=== PATIENT | male | born 1990 | race African-American/Black ===

== ENCOUNTER 2016-05-08 03:00 | Emergency (ER) | payer BC ==
[2016-05-08] MEDS ORDERED: BENZONATATE 100 MG PERLES PO ONE (03:22)
[2016-05-08] MEDS ORDERED: METHYLPREDNISOLONE 125 MG/2 ML VIAL IM ONE (03:22)
[2016-05-08 03:23] VITALS: TEMP 98.1; BMI 41.8
--- NOTE | 2016-05-08 03:25 | EDPRACDOC ---
- General Information Chief Complaint: Sore Throat Stated Complaint: SORE THROAT, COUGH Time Seen by Provider: 05/08/16 03:20 Information Source: Patient Mode Of Arrival: Ambulance Home Medications: Home Medications Albuterol Sulfate [Proair Hfa] 2 puff INH QID #1 inhaler 05/08/16 Azithromycin [Zithromax] 250 mg PO DAILY #6 tablet 05/08/16 Benzonatate [Tessalon] 200 mg PO TID #20 per 05/08/16 Prednisone [Deltasone, Orasone] 20 mg PO BID #20 tab 05/08/16 Promethazine with Codeine [PHENERGAN with CODEINE] 5 ml PO Q4 #120 udc 05/08/16 Allergies/Adverse Reactions: Allergies Allergy/AdvReac Type Severity Reaction Status Date / Time No Known Allergies Allergy Verified 05/08/16 03:22 - History of Present Illness Symptoms Started: 3 months HPI: PT PRESENTS FOR PERSISTENT COUGH THAT HAS LAST FOR SEVERAL MONTHS. HE WAS TREATED LAST YEAR FOR BRONCHITIS WHICH STARTED AFTER BEGAN VAPING, HE STATES HE HAS SINCE STOPPED. STATES THAT NOW HE HAS COUGHED TO THE POINT OF GETTING A SORE THROAT AND IS NOW HAVE STREAKS OF BLOOD IN HIS SPUTUM. DENIES FEVER, CHILLS , NAUSEA OR VOMITING. Symptoms: Reports: Cough, Sore Throat Recently Treated Infections:: Denies: Otitis media, Pneumonia, URI Recent Medications: Reports: None Relevant History Of: Reports: None Shortness of Breath: None Cough Frequency: Intermittent Cough Description: Reports: Productive Rhinorrhea: Reports: Clear Ear Symptoms: Reports: None Associated Signs and Symptoms: Denies: Cough, Earache, Fever, Headache, Nasal Symptoms, Sore Throat, Nausea, Vomiting, Diarrhea, Myalgia, Rash, Pain with head movement, AMS, Other ED Past Medical History - History Reviewed Yes Nurses notes reviewed and agree except as marked - Patient Medical History Respiratory History: Reports: Asthma Psychological History: Denies: Depression Systemic History: Denies: Cancer - Social Medical History Smoking Status: Heavy tobacco smoker (5 or more cigarettes/day or daily pipe/ cigar) EDM Review of Systems - Review of Systems ROS Negative Except as Marked: Yes All systems reviewed and were negative except as marked - Physical Exam Constitutional: Alert Oriented to: Time, Person, Place Last recorded Vital Signs: Last Vital Signs Temp 98.1 F 05/08/16 03:19 Pulse 86 05/08/16 03:19 Resp 20 05/08/16 03:19 BP 156/67 05/08/16 03:19 Pulse Ox 98 05/08/16 03:19 Oxygen Pulse Oxygen Saturation 98 O2 Device Room Air Oxygen Flow Rate Fraction of Inspired Oxygen ( FIO2) - HEENT Head: Normal ( normocephalic) Eye Exam: Normal (PERRL, EOMI, Sclera white) Oropharynx: Red, Tonsillar Hypertrophy Tympanic Membrane: Normal Nose: No Symptoms Reported (septum midline) Neck: Normal (FROM, trachea at midline) - Respiratory/Cardiovascular Respiratory: Normal - CTA (BBS clear to auscultation without adventitious sounds ) Cardiovascular: Normal (RRR without murmur, gallop or rub) - GI Auscultation: Normal (NABS) Palpation: Normal (Soft,No rebound or guarding, non distended) Tenderness: Non tender Mccallum's Sign: Negative Rectal Exam: Deferred - Musculoskeletal Back: Normal (Non-Tender) Extremities: Normal (Normal tone, Pulses 2+ No cyanosis or edema, FROM) - Integumentary Skin: Normal, Warm, Dry Lymphatics: Normal (no adenopathy) - Neurologic Memory Impaired: Normal Motor Function: Normal (Normal tone, Pulses 2+ No cyanosis or edema, FROM) Cranial Nerve: Normal (CN II-X11 intact sensation, strength 5/5) Cerebellar: Normal Mood Description: Normal Perception: Normal - Differential Diagnosis Bronchitis Decision Time to Discharge: 03:55 - Departure Disposition: Home Condition: Stable Final Diagnosis: Bronchitis Instructions: Acute Bronchitis (ED), How Your Lungs Work (ED) Education/Counseling Given To: Patient Education/Counseling Given Regarding: Diagnosis, Treatment, Prognosis, Follow Up Referrals: Vince Awad MD [Staff Physician] - One Week Prescriptions: Albuterol Sulfate [Proair Hfa] 2 puff INH QID #1 inhaler Azithromycin [Zithromax] 250 mg PO DAILY #6 tablet Benzonatate [Tessalon] 200 mg PO TID #20 per Prednisone [Deltasone, Orasone] 20 mg PO BID #20 tab Promethazine with Codeine [PHENERGAN with CODEINE] 5 ml PO Q4 #120 udc Additional Instructions: INCREASE FLUID INTAKE. FOLLOW UP WITH PRIMARY CARE PROVIDER NEXT WEEK. TAKE ALL ANTIBIOTICS PRESCRIBED. RETURN TO THE ED FOR WORSENING SYMPTOMS OR CONCERNS.
--- NOTE | 2016-05-08 03:50 | DIRPT ---
CLINICAL DATA: Cough for couple of months. EXAM: CHEST 2 VIEW COMPARISON: 07/19/2015 FINDINGS: The heart size and mediastinal contours are within normal limits. Both lungs are clear. The visualized skeletal structures are unremarkable. IMPRESSION: No active cardiopulmonary disease. Electronically Signed By: Ross Tabor M.D. On: 05/08/2016 03:48
[2016-05-08 04:14] VITALS: BP 154/76; PULSE 69
== END 2016-05-08 04:12 | disposition home or self-care (01) ==
LOC: ED 03:00
DX: J40 Bronchitis, not specified as acute or chronic (principal); J45.909 Unspecified asthma, uncomplicated; F17.210 Nicotine dependence, cigarettes, uncomplicated; Z79.52 Long term (current) use of systemic steroids; Z79.899 Other long term (current) drug therapy
CPT/HCPCS: 71020; 87070; 87880; 96372; 99283; J2930; J3490